=== PATIENT | male | born 1985 | race Two or more races ===

== ENCOUNTER 2017-11-05 17:18 | Emergency (ER) | payer SELFPAY ==
[~2017-11-05] VITALS: Ht 177.8 cm; Wt 86.0 kg
[2017-11-05 23:45] VITALS: BP 128/77
== END 2017-11-06 06:23 | disposition home or self-care (01) ==
LOC: ER 17:18
DX: H66.91 Otitis media, unspecified, right ear (principal); H60.91 Unspecified otitis externa, right ear; F17.200 Nicotine dependence, unspecified, uncomplicated
CPT/HCPCS: 99283

== ENCOUNTER 2022-01-30 10:50 | Inpatient (IN) | payer MEDICAID, OTHER ==
[~2022-01-30] VITALS: Ht 175.3 cm; Wt 99.8 kg
[2022-01-30] MEDS ORDERED: IBUPROFEN 600MG TABLET PO STA (12:16)
[2022-01-30] MEDS ORDERED: ACETAMINOPHEN 325MG TABLET PO STA (12:16)
[2022-01-30] MEDS ORDERED: VANCOMYCIN 1G PREMIX 200 ML IV SCH (13:30)
[2022-01-30] MEDS ORDERED: PIPERACILLIN/TAZOBACTAM 3.375 G in DEXTROSE 5% WATER 50 ML IV SCH (13:30)
[2022-01-30 13:37] LABS: BASOPHILS % 0.4 % (0.0-2.0); EOSINOPHILS % 1.9 % (0.0-5.0); HEMATOCRIT. 44.9 % (42.0-52.0); LYMPHOCYTES % 33.4 % (20.0-50.0); MEAN CORPUSCULAR HEMOGLOBIN 29.1 pg (28.0-32.0); MEAN CORPUSCULAR VOLUME 87.5 fL (80.0-94.0); MEAN PLATELET VOLUME 9.6 fl (7.4-10.4); NEUTROPHILS % 57.3 % (40.0-76.0); PLATELET 207 x1000/uL (130-400); RED BLOOD CELL COUNT 5.14 mill/uL (4.7-6.1); RED CELL DISTRIBUTION WIDTH 13.7 % (11.6-14.6)
[2022-01-30] MEDS ORDERED: PIPERACILLIN/TAZ 3.375G PREMIX 50 ML IV NR (14:00)
[2022-01-30] MEDS ORDERED: PIPERACILLIN/TAZOBACTAM 3.375 G in DEXTROSE 5% WATER 50 ML IV NR (14:00)
[2022-01-30 16:04] LABS: CHLORIDE 108 mEq/L (98-107)
[2022-01-30 23:50] VITALS: BP 118/61
[2022-01-31] VITALS: BP 118/61
[2022-01-31] MEDS ORDERED: HYDROCODONE/ACETAMINOPHEN 5/325MG TABLET PO PRN (00:45)
[2022-01-31 04:00] VITALS: BP 123/75
[2022-01-31] MEDS ORDERED: PIPERACILLIN/TAZOBACTAM 3.375 G in DEXTROSE 5% WATER 50 ML IV SCH (06:00)
[2022-01-31 07:58] LABS: BASOPHILS % 0.4 % (0.0-2.0); EOSINOPHILS % 1.8 % (0.0-5.0); HEMOGLOBIN. 14.2 g/dL (14.0-18.0); LYMPHOCYTES % 31.5 % (20.0-50.0); MEAN CORPUSCULAR HEMOGLOBIN 28.7 pg (28.0-32.0); MEAN CORPUSCULAR VOLUME 87.1 fL (80.0-94.0); MEAN PLATELET VOLUME 10.2 fl (7.4-10.4); MONOCYTES % 7.7 % (2.0-8.0); NEUTROPHILS % 58.6 % (40.0-76.0); PLATELET 207 x1000/uL (130-400); RED BLOOD CELL COUNT 4.94 mill/uL (4.7-6.1); RED CELL DISTRIBUTION WIDTH 13.3 % (11.6-14.6)
[2022-01-31 10:41] LABS: CHLORIDE 110 mEq/L (98-107)
[2022-01-31] MEDS ORDERED: AMOX1TAB16 MT (11:32)
== END 2022-01-31 14:30 | disposition home or self-care (01) | DRG 113 ==
LOC: ER 10:57 → CANBEDREQ 17:00 → 6EST 18:48 → EDBEDREQ 18:50 → EDBEDREQTM 18:50
PROVIDERS: ADMIT Internal Medicine; ATTEND Internal Medicine
DX: H70.92 Unspecified mastoiditis, left ear (principal); E66.9 Obesity, unspecified; Z68.32 Body mass index [BMI] 32.0-32.9, adult; Z83.3 Family history of diabetes mellitus
CPT/HCPCS: 36415; 70480; 80048; 80053; 82962; 85025; 99285; J2543; J3370; J7060

== ENCOUNTER 2022-02-22 11:02 | Emergency (ER) | payer MEDICAID, OTHER ==
[~2022-02-22] VITALS: Ht 172.7 cm; Wt 89.0 kg
[~2022-02-22 11:02] MED LIST: AMOX1TAB16 MT
[2022-02-22 11:10] VITALS: BP 142/85
[2022-02-22] MEDS ORDERED: ACETAMINOPHEN 325MG TABLET PO ONE (11:15)
[2022-02-22] MEDS ORDERED: LIDOCAINE HCL/EPINEPHRINE 1%-EPI 1:100,000 20 ML VIAL INFIL ONE (11:15)
[2022-02-22] MEDS ORDERED: LIDOCAINE HCL/EPINEPHRINE 1%-EPI 1:100,000 30 ML VIAL INFIL ONE (12:15)
== END 2022-02-22 13:24 | disposition home or self-care (01) ==
LOC: ER 11:04
DX: S01.01XA Laceration without foreign body of scalp, initial encounter (principal); S09.8XXA Other specified injuries of head, initial encounter; W01.0XXA Fall on same level from slipping, tripping and stumbling without subsequent striking against object, initial encounter; Y93.9 Activity, unspecified; Y92.9 Unspecified place or not applicable
CPT/HCPCS: 12004; 99284; J3490

== ENCOUNTER 2022-03-08 07:48 | Emergency (ER) | payer MEDICAID ==
[~2022-03-08] VITALS: Ht 170.2 cm; Wt 78.0 kg
[2022-03-08 08:14] VITALS: BP 137/83
== END 2022-03-08 10:17 | disposition home or self-care (01) ==
LOC: ER 07:48
DX: Z48.02 Encounter for removal of sutures (principal)
CPT/HCPCS: 99281

== ENCOUNTER 2023-10-21 08:36 | Emergency (ER) | payer MEDICAID, OTHER ==
[~2023-10-21] VITALS: Ht 175.3 cm; Wt 94.0 kg
[2023-10-21 08:39] VITALS: BP 150/82; PULSE 74; RESP 12; TEMP 98.3; O2SAT 98
[2023-10-21] MEDS ORDERED: IBUP-2028 PO (09:38)
[2023-10-21] MEDS ORDERED: AMOX1TAB16 PO (09:38)
== END 2023-10-21 09:52 | disposition home or self-care (01) ==
LOC: ER 09:34
DX: H72.91 Unspecified perforation of tympanic membrane, right ear (principal)
CPT/HCPCS: 99283

== ENCOUNTER 2023-11-02 08:31 | Emergency (ER) | payer OTHER ==
[~2023-11-02] VITALS: Ht 175.3 cm; Wt 95.0 kg
[~2023-11-02 08:31] MED LIST changes: +AMOX1TAB16 PO; +IBUP-2028 PO
[2023-11-02 08:36] VITALS: O2SAT 99
[2023-11-02] MEDS ORDERED: CEFD300C3 MT (09:08)
[2023-11-02] MEDS: CEFTRIAXONE SODIUM 1G VIAL IM ONE (09:47)
[2023-11-02] MEDS: LIDOCAINE HCL 1% 20ML VIAL INFIL ONE (09:47)
[2023-11-02] MEDS: KETOROLAC 30MG/ML VIAL IM ONE (09:48)
[2023-11-02 09:52] VITALS: BP 127/70; PULSE 77; RESP 16; TEMP 36.89184; O2SAT 99
== END 2023-11-02 09:52 | disposition home or self-care (01) ==
LOC: ER 08:31
DX: H66.92 Otitis media, unspecified, left ear (principal)
CPT/HCPCS: 99284; 96372; J0696; J1885; J3490